=== PATIENT | female | born 1980 | race Caucasian/White ===

== ENCOUNTER 2017-08-19 02:13 | Emergency (ER) | payer MEDICAID ==
[~2017-08-19] VITALS: Ht 154.9 cm; Wt 65.8 kg
[2017-08-19 02:21] VITALS: BP 108/77
--- NOTE | 2017-08-19 02:45 | NUR ---
PT BIBA TO ER BED 5 Addendum: 08/19/17 at 0248 by [facility] PT AMBULATED TO ER BED 11
[2017-08-19 03:05] LABS: APPEARANCE,URINE TURBID (CLEAR); BILIRUBIN,URINE NEGATIVE (NEGATIVE); BLOOD, URINE 1+ (NEGATIVE); COLOR,URINE YELLOW (YELLOW); LEUKOCYTE ESTERASE ,URINE 1+ (NEGATIVE); NITRITE, URINE POSITIVE (NEGATIVE); UGLUCOSE NEGATIVE (NEGATIVE)
[2017-08-19 03:13] LABS: RBC,URINE 11-20 (MOD) /HPF (0-5); WBC,URINE TOO MANY TO COUNT /HPF (0-5)
--- NOTE | 2017-08-19 03:39 | NUR ---
PT C/O URINARY FREQUENCY, HEAMTURIA, BURNING, ITCHING , AND SUPRAPUBIC PAIN SINCE WEDNESDAY. PT WAS SEEN AT CLINIC AND GIVEN AZO PILLS. ABD IS ROUND, SOFT, NON TENDER, ACTIVE BS X4. PT DENIES N/V/D, CHILLS, FEVER. NO PMH, NKDA
[2017-08-19] MEDS ORDERED: CEPHALEXIN 500 MG CAP PO ONE (03:55)
[2017-08-19] MEDS ORDERED: PHENAZOPYRIDINE 100 MG TAB PO ONE (03:55)
--- NOTE | 2017-08-19 04:20 | NUR ---
Patient discharged with v/s stable. Written and verbal after care instructions given and explained. Patient alert, oriented and verbalized understanding of instructions. Ambulatory with steady gait. All questions addressed prior to discharge. ID band removed. Patient advised to follow up with PMD. Rx of CHEPHALEXIN, PYRIDIUM given. Patient educated on indication of medication including possible reaction and side effects. Opportunity to ask questions provided and answered.
[2017-08-19 05:01] VITALS: BP 129/76
--- NOTE | 2017-08-22 18:50 | NUR ---
CALLED PATIENT AT HOME NO ANSWER LEFT VOICEMAIL FOR HER TO SEE PCP OR RETUN HERE FOR RX OF ANTIBIOTIC FOR UTI.
== END 2017-08-19 04:20 | disposition home or self-care (01) ==
LOC: MED 02:13
DX: R35.0 Frequency of micturition (principal); R31.9 Hematuria, unspecified; R10.30 Lower abdominal pain, unspecified; L29.9 Pruritus, unspecified
CPT/HCPCS: 81001; 81025; 87086; 87186; 99284

== ENCOUNTER 2018-07-21 09:48 | Emergency (ER) | payer MEDICAID ==
[~2018-07-21] VITALS: Ht 154.9 cm; Wt 68.5 kg
[2018-07-21 09:59] VITALS: BP 115/67
--- NOTE | 2018-07-21 09:59 | NUR ---
PATIENT AMB. TO BED #2
--- NOTE | 2018-07-21 10:05 | NUR ---
PT STATED STRESS FROM WORK. DENIES NAUSEA/VOMITING; ANXIOUS SINCE LAST NIGHT. PT AVOIDING EYE CONTACT, WEARING DARK SUNGLASSES. PT FIDGETING WHILE ANSWERING QUESTIONS. STATES SHE RECIEVED A DEPO SHOT IN APR, CANNOT REMEMBER LAST MENSTRUAL CYCLE. PAIN IN ABDOMEN DESCRIBED GENERALIZED ACHY AND CRAMPING. 8/10 PAIN.
[2018-07-21] MEDS ORDERED: KETOROLAC 60 MG/2 ML VIAL IM ONE ×2 (10:55→11:07)
[2018-07-21 11:59] VITALS: BP 115/67
== END 2018-07-21 11:58 | disposition home or self-care (01) ==
LOC: MED 09:48
DX: R10.30 Lower abdominal pain, unspecified (principal); M54.5 Low back pain; R11.0 Nausea
CPT/HCPCS: 81002; 81025; 96372; 99283; J1885

== ENCOUNTER 2019-01-31 17:07 | Emergency (ER) | payer MEDICAID ==
[~2019-01-31] VITALS: Ht 154.9 cm; Wt 68.0 kg
[2019-01-31 17:19] VITALS: BP 122/56
--- NOTE | 2019-01-31 18:08 | NUR ---
PT PLACED IN CHAIR C.
[2019-01-31] MEDS ORDERED: ONDANSETRON 4 MG ODT PO ONE (18:25)
--- NOTE | 2019-01-31 18:33 | NUR ---
38/F PRESENTS TO ED, C/O VOMITING AND DIZZINESS X1 DAY, PT STATED SHE WOKE UP WITH SYMPTOMS. PT REPORTS EPIGASTRIC PAIN, DENIES LOWER QUADRANT PAIN. PT AWAKE AND ALERT, SKIN NORMAL COLOR WARM AND DRY, RR EVEN AND UNLABORED. ABD SOFT FLAT TENDER TO EPIGASTRIC. DENIES MED HX OR RX.
[2019-01-31] MEDS ORDERED: DICYCLOMINE HCL LIQUID 20 MG, ALUMINUM HYD/MAG/SIMETHICONE 30 ML, LIDOCAINE VISCOUS 2% ... PO ONE ×3 (19:20)
[2019-01-31 19:41] VITALS: BP 122/65
== END 2019-01-31 19:41 | disposition home or self-care (01) ==
LOC: MED 17:07
DX: A08.4 Viral intestinal infection, unspecified (principal)
CPT/HCPCS: 81002; 81025; 99283; Q0162

== ENCOUNTER 2019-12-06 02:24 | Emergency (ER) | payer MEDICAID ==
[~2019-12-06] VITALS: Ht 154.9 cm; Wt 70.8 kg
[2019-12-06 02:26] VITALS: BP 135/70
--- NOTE | 2019-12-06 02:26 | NUR ---
39 Y/O FEMALE PRESENTED TO ED C/O RASH X 1 DAY - PT UNSURE WHAT MAY HAVE CAUSED THE RASH. PT STATES SHE HAS NOT USED ANY NEW LOTION/SOAP/DETERGENT OR EATEN ANY NEW FOOD. PT DENIES N/V/D/BODY ACHES/FEVER AND CHILLS. ERMD MADE AWARE OF PT STATUS. PMH: DENIES NKA
--- NOTE | 2019-12-06 02:39 | NUR ---
ERMD AT BEDSIDE FOR MEDICAL EVALUATION.
[2019-12-06] MEDS ORDERED: diphenhydrAMINE 50 MG CAP PO ONE (02:40)
--- NOTE | 2019-12-06 02:40 | NUR ---
pt states she has a ride home after medication administration.
[2019-12-06 02:49] VITALS: BP 135/70
--- NOTE | 2019-12-06 02:49 | NUR ---
Patient discharged with v/s stable. Written and verbal after care instructions given and explained. Patient verbalized understanding. Ambulatory with steady gait. All questions addressed prior to discharge. Advised to follow up with PMD.
== END 2019-12-06 02:49 | disposition home or self-care (01) ==
LOC: MED 02:24
DX: L50.9 Urticaria, unspecified (principal); E11.9 Type 2 diabetes mellitus without complications; I10 Essential (primary) hypertension
CPT/HCPCS: 99282; Q0163

== ENCOUNTER 2020-11-17 20:33 | Emergency (ER) | payer MEDICAID ==
[~2020-11-17] VITALS: Ht 154.9 cm; Wt 70.3 kg
[2020-11-17 20:35] VITALS: BP 117/70
--- NOTE | 2020-11-17 20:35 | NUR ---
TO BED AMBULATORY
[2020-11-17 20:50] VITALS: BP 117/70
[2020-11-17] MEDS ORDERED: KETOROLAC 30 MG/ML VIAL IM ONE (21:05)
--- NOTE | 2020-11-17 21:20 | NUR ---
40 YO/F BIB SELF W CO LOWER BACK AND PELVIC PAIN / "STABBING LIKE" X1 WEEK WORSENS W MOVEMENT. PATIENT REPORTS ADVIL HELPS W PAIN RELIEF FOR APPROX 1. DENIES ANY INJURY OR TRAUMA. DENIES URINARY BURNING, FREQUENCY, RETENTION OR OTHER URINARY SYMPTOMS. DENIES DIARREA, OR CONSTIPATION. DENIES FEVERS, N/V. BOWEL SOUNDS PRESENT THROUHGOUT, PELVIC AREA TENDER TO TOUCH. PATIENT LAYING IN BED LOCKED IN LOWEST POSITION, X1 SIDERAIL UP. BREATHING EVEN AND UNLABORED. NAD NOTED, WILL CONTINUE TO MONITOR. PMH: DENIES NKA
[2020-11-17 21:34] LABS: APPEARANCE,URINE CLEAR (CLEAR); BILIRUBIN,URINE NEGATIVE (NEGATIVE); BLOOD, URINE 1+ (NEGATIVE); COLOR,URINE YELLOW (YELLOW); LEUKOCYTE ESTERASE ,URINE NEGATIVE (NEGATIVE); NITRITE, URINE NEGATIVE (NEGATIVE); PH,URINE 6.5 (5.0-9.0); UGLUCOSE NEGATIVE (NEGATIVE)
[2020-11-17 21:46] LABS: RBC,URINE 0-5 /HPF (0-5); WBC,URINE 0-5 /HPF (0-5)
--- NOTE | 2020-11-17 22:45 | NUR ---
PATIENT ELOPED FROM FACILITY. DISCHARGE INSTRUCTIONS NOT GIVEN TO PATIENT. DR. MEJIA NOTIFIED.
== END 2020-11-17 22:45 | disposition home or self-care (01) ==
LOC: MED 20:33
DX: R10.30 Lower abdominal pain, unspecified (principal); M54.5 Low back pain
CPT/HCPCS: 81001; 81025; 96372; 99283; J1885

== ENCOUNTER 2021-05-14 11:40 | Emergency (ER) | payer MEDICAID ==
[~2021-05-14] VITALS: Ht 154.9 cm; Wt 70.1 kg
[2021-05-14 12:09] VITALS: BP 131/56
[2021-05-14] MEDS ORDERED: ACYC400T14 PO (12:34)
[2021-05-14] MEDS ORDERED: NAPR-54 PO (12:34)
[2021-05-14 12:46] VITALS: BP 131/56
--- NOTE | 2021-05-14 12:48 | NUR ---
Patient discharged with v/s stable. Written and verbal after care instructions given and explained. Patient alert, oriented and verbalized understanding of instructions. Ambulatory with steady gait. All questions addressed prior to discharge. ID band removed. Patient advised to follow up with PMD. Rx of acyclovir, naproxen given. Patient educated on indication of medication including possible reaction and side effects. Opportunity to ask questions provided and answered.
== END 2021-05-14 12:46 | disposition home or self-care (01) ==
LOC: MED 11:40
DX: B00.9 Herpesviral infection, unspecified (principal); R20.0 Anesthesia of skin; R20.2 Paresthesia of skin; E11.9 Type 2 diabetes mellitus without complications; I10 Essential (primary) hypertension
CPT/HCPCS: 99283

== ENCOUNTER 2021-06-15 05:32 | Emergency (ER) | payer MEDICAID ==
[~2021-06-15] VITALS: Ht 154.9 cm; Wt 69.9 kg
[~2021-06-15 05:32] MED LIST: ACYC400T14 PO; NAPR-54 PO
[2021-06-15 05:34] VITALS: BP 108/59
--- NOTE | 2021-06-15 05:34 | NUR ---
TO BED AMBULATORY
--- NOTE | 2021-06-15 05:46 | NUR ---
40 YO F BIB SELF WITH C/C OF 8/10 PELVIC PAIN THAT RAD TO BACK XYESTERDAY. PT REPORTS DIARRHEA. DENIES BLOOD IN STOOL. -N/V, FEVER, SOB AND CHEST PAIN. ABD IS SOFT AND FLAT. BOWEL SOUNDS ACTIVE [id number]. PT DENIES MEDS FOR PAIN. STATES LAYING DOWN MAKES HER FEEL BETTER. PT PLACED IN GOWN. URINE COLLECTED. PT GIVEN WARM BLANKET AND SOCKS. DENIES HX, RX AND ALLERGIES
--- NOTE | 2021-06-15 06:39 | NUR ---
AT BEDSIDE EXAMINING PT.
[2021-06-15] MEDS ORDERED: KETOROLAC 15 MG/ML VIAL IM ONE (06:50)
[2021-06-15] MEDS ORDERED: BISMUTH SUBSALICYLATE 15 ML UDBTL PO PRN (06:50)
--- NOTE | 2021-06-15 06:54 | NUR ---
PEPTO IS NOT AVALIABLE UNTIL PHARMACY GETS HERE AROUND 7AM-8AM, JESSE PARKER MADE AWARE.
--- NOTE | 2021-06-15 07:10 | NUR ---
REPORT AND CONTINUATION OF CARE RECEIVED FROM ALANA GAONA.
--- NOTE | 2021-06-15 07:10 | NUR ---
REPORT GIVEN TO CANDELARIA OBANDO. TRANSFER OF CARE AT THIS TIME.
--- NOTE | 2021-06-15 07:26 | NUR ---
WALKED URINE SAMPLE FOR UA TO LAB, HANDED TO JOSHUA
[2021-06-15 07:47] LABS: APPEARANCE,URINE CLEAR (CLEAR); BILIRUBIN,URINE NEGATIVE (NEGATIVE); BLOOD, URINE TRACE-L (NEGATIVE); COLOR,URINE YELLOW (YELLOW); LEUKOCYTE ESTERASE ,URINE NEGATIVE (NEGATIVE); NITRITE, URINE NEGATIVE (NEGATIVE); UGLUCOSE NEGATIVE (NEGATIVE)
[2021-06-15 07:55] VITALS: BP 100/59
--- NOTE | 2021-06-15 07:58 | NUR ---
PT DECREASE IN PAIN FROM 8 TO 5
[2021-06-15 07:59] LABS: RBC,URINE 0-5 /HPF (0-5); WBC,URINE 0-5 /HPF (0-5)
[2021-06-15] MEDS ORDERED: BISM262C53 PO (08:07)
--- NOTE | 2021-06-15 08:16 | NUR ---
Patient discharged with v/s stable. Written and verbal after care instructions given and explained. Patient alert, oriented and verbalized understanding of instructions. Ambulatory with steady gait. All questions addressed prior to discharge. ID band removed. Patient advised to follow up with PMD. Rx of BISMUTH SALICYLATE given. Patient educated on indication of medication including possible reaction and side effects. Opportunity to ask questions provided and answered.
== END 2021-06-15 08:16 | disposition home or self-care (01) ==
LOC: MED 05:32
DX: R10.32 Left lower quadrant pain (principal); R19.7 Diarrhea, unspecified; E11.9 Type 2 diabetes mellitus without complications; I10 Essential (primary) hypertension; Z79.899 Other long term (current) drug therapy
CPT/HCPCS: 81001; 81025; 87086; 96372; 99283; J1885

== ENCOUNTER 2021-09-02 11:52 | Emergency (ER) | payer MEDICAID ==
[~2021-09-02] VITALS: Ht 165.1 cm; Wt 68.7 kg
[~2021-09-02 11:52] MED LIST changes: +BISM262C53 PO
[2021-09-02 12:02] VITALS: BP 104/59
--- NOTE | 2021-09-02 12:09 | NUR ---
PT AMBULATED TO BED 05.
--- NOTE | 2021-09-02 12:12 | NUR ---
PT IN GOWN. URINE OBTAINED
--- NOTE | 2021-09-02 12:16 | NUR ---
PA AT BEDSIDE
[2021-09-02] MEDS ORDERED: PYR100 PO (12:35)
[2021-09-02] MEDS ORDERED: NITR100C7 PO (12:35)
[2021-09-02] MEDS ORDERED: IBUPROFEN 600 MG TAB PO ONE (12:35)
[2021-09-02] MEDS ORDERED: IBUP-2213 PO (12:35)
[2021-09-02 13:09] VITALS: BP 105/41
--- NOTE | 2021-09-02 13:09 | NUR ---
Patient discharged with v/s stable. Written and verbal after care instructions given and explained. Patient alert, oriented and verbalized understanding of instructions. Ambulatory with steady gait. All questions addressed prior to discharge. ID band removed. Patient advised to follow up with PMD. Rx of IBUPROFEN NITROFURANTION PYRIDIUM given. Patient educated on indication of medication including possible reaction and side effects. Opportunity to ask questions provided and answered.
--- NOTE | 2021-09-02 13:10 | NUR ---
Chart checked and completed. The patient's care was reviewed and supervised by Amanda Dee RN.
== END 2021-09-02 13:09 | disposition home or self-care (01) ==
LOC: MED 11:52
DX: N39.0 Urinary tract infection, site not specified (principal); Z79.1 Long term (current) use of non-steroidal anti-inflammatories (NSAID); Z79.899 Other long term (current) drug therapy; Z79.2 Long term (current) use of antibiotics
CPT/HCPCS: 81002; 81025; 87086; 99283

== ENCOUNTER 2021-11-20 16:11 | Emergency (ER) | payer MEDICAID ==
[~2021-11-20] VITALS: Ht 157.5 cm; Wt 65.8 kg
[~2021-11-20 16:11] MED LIST changes: -ACYC400T14 PO; -BISM262C53 PO; +IBUP-2213 PO; -NAPR-54 PO; +NITR100C7 PO; +PYR100 PO
[2021-11-20 16:36] VITALS: BP 114/55
[2021-11-20] MEDS ORDERED: MECL-303 PO (17:33)
[2021-11-20 17:50] VITALS: BP 108/68
== END 2021-11-20 17:49 | disposition home or self-care (01) ==
LOC: MED 16:11
DX: H81.10 Benign paroxysmal vertigo, unspecified ear (principal); L98.9 Disorder of the skin and subcutaneous tissue, unspecified; R42 Dizziness and giddiness; Z79.899 Other long term (current) drug therapy
CPT/HCPCS: 99282

== ENCOUNTER 2022-08-08 11:54 | Emergency (ER) | payer MEDICAID, OTHER ==
[~2022-08-08] VITALS: Ht 154.9 cm; Wt 70.4 kg
[~2022-08-08 11:54] MED LIST changes: +MECL-303 PO
[2022-08-08 12:06] VITALS: BP 120/70
--- NOTE | 2022-08-08 12:14 | NUR ---
PATIENT AMBULATED TO LOBBY.
[2022-08-08] MEDS ORDERED: IBUPROFEN 600 MG TAB PO ONE (13:25)
[2022-08-08] MEDS ORDERED: IBUP-2213 PO (14:17)
[2022-08-08] MEDS ORDERED: CYCL-711 PO (14:17)
[2022-08-08] MEDS ORDERED: IBUPROFEN 600 MG TAB ONE (14:51)
--- NOTE | 2022-08-08 14:51 | NUR ---
PATIENT AMBULATED TO CHAIR A FOR MEDICATION
--- NOTE | 2022-08-08 15:16 | NUR ---
Patient discharged with v/s stable. Written and verbal after care instructions given and explained. Patient alert, oriented and verbalized understanding of instructions. Ambulatory with steady gait. All questions addressed prior to discharge. ID band removed. Patient advised to follow up with PMD. Rx of FLEXERIL, MOTRIN given. Patient educated on indication of medication including possible reaction and side effects. Opportunity to ask questions provided and answered.
== END 2022-08-08 15:16 | disposition home or self-care (01) ==
LOC: MED 11:54
DX: S39.92XA Unspecified injury of lower back, initial encounter (principal); M25.531 Pain in right wrist; W01.0XXA Fall on same level from slipping, tripping and stumbling without subsequent striking against object, initial encounter; Y93.89 Activity, other specified; Y92.89 Other specified places as the place of occurrence of the external cause; Y99.8 Other external cause status
CPT/HCPCS: 72100; 73110; 73130; 99283

== ENCOUNTER 2022-09-06 17:26 | Emergency (ER) | payer MEDICAID, OTHER ==
[~2022-09-06] VITALS: Ht 154.9 cm; Wt 65.8 kg
[~2022-09-06 17:26] MED LIST changes: +CYCL-711 PO
[2022-09-06 17:28] VITALS: BP 96/67
--- NOTE | 2022-09-06 17:34 | NUR ---
PT AMB TO BED 4
--- NOTE | 2022-09-06 17:39 | NUR ---
42YO FEMALE PT C/O INCREASED STABBING LOWER BACK PAIN X1WEEK. RADIATION TO PELVIC. REPORTS INITIAL ONSET S/P MECH FALL AT WORK [id number] W/ -XRAY. STATES RELIEF AFTER RX CYCLOBENZAPRINE HYDROCHLORIDE BUT STATES SHE HAS BEEN OUT FOR PAST FEW DAYS. DENIES NEW INJURY, NUMBING OR LOSS OF SENSATION. BACK W/O VISIBLE INJURY. PT AAOX4, AMB W/ STEADY GAIT. HOB POSITIONED PER COMFORT. HX:DENIES NKA
--- NOTE | 2022-09-06 18:22 | NUR ---
MD ANDREWS AT BEDSIDE FOR EVALUATION
[2022-09-06] MEDS ORDERED: KETOROLAC 60 MG/2 ML VIAL IM ONE (18:25)
--- NOTE | 2022-09-06 18:41 | NUR ---
pt taken to ct via w/c
--- NOTE | 2022-09-06 18:49 | NUR ---
pt brought back via w/c
--- NOTE | 2022-09-06 19:15 | NUR ---
REPORT GIVEN TO BHAVANI ALEXIS. TRANSFER OF CARE AT THIS TIME
--- NOTE | 2022-09-06 19:30 | NUR ---
42 Y/O F C/O LOWER BACK PAIN RADIATING TO PELVIC AREA DUE TO INJURY AT WORK IN JULY. PAIN RATING 9/10 WORSENING UPON MOVEMENT. PT STATES SHE IS OUT OF PAIN MEDS. NKDA NO MED HX
[2022-09-06] MEDS ORDERED: NAPR-54 PO (19:45)
== END 2022-09-06 19:50 | disposition home or self-care (01) ==
LOC: MED 17:26
DX: M54.50 Low back pain, unspecified (principal); Z79.899 Other long term (current) drug therapy
CPT/HCPCS: 72131; 81025; 96372; 99285; J1885

== ENCOUNTER 2022-11-26 22:09 | Emergency (ER) | payer MEDICAID ==
[~2022-11-26] VITALS: Ht 154.9 cm; Wt 67.1 kg
[~2022-11-26 22:09] MED LIST changes: +BENC TP; +DIPH25TA53 PO; +EPIN1KIT31 IM; +FAMO-90 PO; +NAPR-54 PO; +PRED20TA5 PO
[2022-11-26 22:30] VITALS: BP 134/71; PULSE 84; RESP 18; TEMP 97.6; O2SAT 99
[2022-11-26 22:41] VITALS: BP 134/71; PULSE 84; RESP 18; TEMP 97.6; O2SAT 99
== END 2022-11-27 00:37 | disposition home or self-care (01) ==
LOC: MED 22:09
DX: J06.9 Acute upper respiratory infection, unspecified (principal); Z79.899 Other long term (current) drug therapy
CPT/HCPCS: 99281

== ENCOUNTER 2023-03-18 19:23 | Emergency (ER) | payer MEDICAID ==
[~2023-03-18] VITALS: Ht 154.9 cm; Wt 70.3 kg
[2023-03-18 19:50] VITALS: BP 118/69; PULSE 85; RESP 17; TEMP 98.2; O2SAT 96
[2023-03-18 21:08] LABS: BASOPHILS # (AUTO) 0.1 K/uL (0.00-0.22); BASOPHILS % (AUTO) 0.5 % (0.0-2.0); EOSINOPHILS # (AUTO) 0.2 K/uL (0-0.4); EOSINOPHILS % (AUTO) 2.1 % (0.0-4.0); HEMATOCRIT 37.3 % (36-48); HEMOGLOBIN 12.7 g/dL (12.0-16.0); LYMPHOCYTES # (AUTO) 2.4 K/uL (2.5-16.5); LYMPHOCYTES % (AUTO) 22.7 % (20.5-51.1); MEAN CORPUSCULAR HEMOGLOBIN 29 pg (27-31); MEAN CORPUSCULAR HGB CONC 34 g/dL (33-37); MEAN CORPUSCULAR VOLUME 85.7 fL (80-94); MONOCYTES # (AUTO) 0.7 K/uL (0.8-1.0); MONOCYTES % (AUTO) 6.4 % (1.7-9.3); NEUTROPHILS # (AUTO) 7.1 K/uL (1.8-7.7); NEUTROPHILS % (AUTO) 68.3 % (42.2-75.2); PLATELET COUNT (AUTO) 319 K/uL (140-450); RED BLOOD CELL COUNT(AUTO) 4.35 MIL/uL (4.20-5.40); WHITE BLOOD COUNT (AUTO) 10.4 K/uL (4.8-10.8)
[2023-03-18 21:27] LABS: ANION GAP 13.4 (8-16); CREATININE 0.8 mg/dL (0.6-1.3); POTASSIUM 3.4 mmol/L (3.5-5.1)
[2023-03-18 21:33] LABS: ALBUMIN 3.5 g/dL (3.4-5.0); TOTAL BILIRUBIN 0.2 mg/dL (0.0-1.0); TOTAL PROTEIN, SERUM 7.5 g/dL (6.4-8.2)
[2023-03-18 22:30] LABS: APPEARANCE,URINE CLEAR (CLEAR); BILIRUBIN,URINE NEGATIVE (NEGATIVE); BLOOD, URINE TRACE-I (NEGATIVE); COLOR,URINE YELLOW (YELLOW); LEUKOCYTE ESTERASE ,URINE NEGATIVE (NEGATIVE); NITRITE, URINE NEGATIVE (NEGATIVE); PROTEIN,URINE NEGATIVE (NEGATIVE); UGLUCOSE NEGATIVE (NEGATIVE); UROBILINOGEN,URINE 0.2 EU/dL (0.2 - 1)
[2023-03-18 22:42] LABS: BACTERIA,URINE 10-30 (MOD) /HPF (None Seen); MUCUS,URINE 1+ /LPF (None Seen); RBC,URINE 0-5 /HPF (0-5); WBC,URINE 0-5 /HPF (0-5)
[2023-03-18] MEDS ORDERED: ONDA-188 SL (23:45)
[2023-03-18] MEDS ORDERED: NITR100C7 PO (23:45)
[2023-03-18 23:50] VITALS: BP 106/62; PULSE 68; RESP 16; TEMP 98.2; O2SAT 96
[2023-03-19] MEDS ORDERED: NITR100C7 PO (00:26)
[2023-03-19] MEDS ORDERED: ONDA-188 SL (00:26)
== END 2023-03-18 23:50 | disposition home or self-care (01) ==
LOC: MED 19:23
DX: K52.9 Noninfective gastroenteritis and colitis, unspecified (principal); N39.0 Urinary tract infection, site not specified; E11.9 Type 2 diabetes mellitus without complications; I10 Essential (primary) hypertension; Z79.4 Long term (current) use of insulin; Z79.899 Other long term (current) drug therapy
CPT/HCPCS: 36415; 80053; 81001; 81025; 83690; 85025; 87086; 99283